=== PATIENT | female | born 1985 | race Two or more races ===

== ENCOUNTER 2022-02-25 09:20 | Inpatient (IN) | payer OTHER ==
[~2022-02-25] VITALS: Ht 149.9 cm; Wt 61.2 kg
== END 2022-02-26 12:58 | disposition home or self-care (01) | DRG 745 ==
LOC: CIR.AMB 09:20 → O/R 15:56 → OB/GYN 16:03
PROVIDERS: ADMIT Obstetrics & Gynecology Obstetrics; ATTEND Obstetrics & Gynecology Obstetrics
PROC: 0UB70ZZ Excision of Bilateral Fallopian Tubes, Open Approach (ICD-10-PCS; principal; 2022-02-25 08:45)
DX: Z30.2 Encounter for sterilization (principal); Z20.822 Contact with and (suspected) exposure to COVID-19